=== PATIENT | male | born 1990 | race Caucasian/White ===

== ENCOUNTER 2017-03-26 21:00 | Inpatient (IN) | payer OTHER ==
[~2017-03-26] VITALS: Ht 180.3 cm; Wt 90.7 kg
--- NOTE | 2017-03-26 21:22 | PHYS DOC ---
Past Medical History Past Medical History: No Pertinent History Past Surgical History: No Surgical History Alcohol Use: None Drug Use: None Adult General Chief Complaint Chief Complaint: ABDOMINAL PAIN HPI HPI Patient is a 26 year old male who presents with. He states it started earlier today in the right lower quadrants been constant all time. He has had some nausea, but denies any vomiting. He states anytime he tries to bend over it hurts worse or if he gets bumps in the car it's worse. He denies any past medical history specifically surgeries. Review of Systems Review of Systems Constitutional: Denies fever or chills [] Eyes: Denies change in visual acuity, redness, or eye pain [] HENT: Denies nasal congestion or sore throat [] Respiratory: Denies cough or shortness of breath [] Cardiovascular: No additional information not addressed in HPI [] GI: Positive for abdominal pain, nausea, denies any vomiting, bloody stools or diarrhea [] : Denies dysuria or hematuria [] Musculoskeletal: Denies back pain or joint pain [] Integument: Denies rash or skin lesions [] Neurologic: Denies headache, focal weakness or sensory changes [] Endocrine: Denies polyuria or polydipsia [] Current Medications Current Medications Current Medications Medications (Trade) Dose Ordered Sig/Tae Start Time Stop Time Status Last Admin Dose Admin Info (Do NOT chart on this entry -- for MONITORING) 1 each PRN DAILY PRN 03/26/17 22:30 03/28/17 22:29 Iohexol (Omnipaque 300 Mg/ml) 75 ml 1X ONCE 03/26/17 22:30 03/26/17 22:31 DC 03/26/17 22:40 75 ML Morphine Sulfate 2 mg PRN Q15MIN PRN 03/26/17 21:30 03/27/17 21:29 03/26/17 23:54 2 MG Ondansetron HCl (Zofran) 4 mg 1X ONCE 03/26/17 21:30 03/26/17 21:31 DC 03/26/17 21:44 4 MG Sodium Chloride 1,000 ml @ 1,000 mls/hr Q1H 03/26/17 21:30 03/26/17 22:29 DC 03/26/17 21:44 1,000 MLS/HR Allergies Allergies Allergies Coded Allergies Type Severity Reaction Last Updated Verified No Known Drug Allergies 01/08/15 No Physical Exam Physical Exam Constitutional: Well developed, well nourished, no acute distress, non-toxic appearance. [] HENT: Normocephalic, atraumatic, bilateral external ears normal, oropharynx moist, no oral exudates, nose normal. [] Eyes: PERRLA, EOMI, conjunctiva normal, no discharge. [] Neck: Normal range of motion, no tenderness, supple, no stridor. [] Cardiovascular:Heart rate regular rhythm, no murmur [] Lungs & Thorax: Bilateral breath sounds clear to auscultation [] Abdomen: Bowel sounds normal, soft, tender to palpation in the right lower quadrant, so as sign positive, heel tap positive, no masses, no pulsatile masses. [] Skin: Warm, dry, no erythema, no rash. [] Back: No tenderness, no CVA tenderness. [] Extremities: No tenderness, no cyanosis, no clubbing, ROM intact, no edema. [] Neurologic: Alert and oriented X 3, normal motor function, normal sensory function, no focal deficits noted. [] Psychologic: Affect normal, judgement normal, mood normal. [] Current Patient Data Vital Signs Vital Signs Date Time Temp Pulse Resp B/P (MAP) Pulse Ox O2 Delivery O2 Flow Rate FiO2 03/26/17 22:30 90 22 164/86 (112) 98 Room Air 03/26/17 21:30 98.1 98.1 Lab Values Laboratory Tests Test 03/26/17 21:24 03/26/17 21:57 White Blood Count 10.4 x10^3/uL (4.0-11.0) Red Blood Count 4.82 x10^6/uL (4.30-5.70) Hemoglobin 14.4 g/dL (13.0-17.5) Hematocrit 41.7 % (39.0-53.0) Mean Corpuscular Volume 87 fL (79-100) Mean Corpuscular Hemoglobin 30 pg (25-35) Mean Corpuscular Hemoglobin Concent 34 g/dL (31-37) Red Cell Distribution Width 13.2 % (11.5-14.5) Platelet Count 280 x10^3/uL (140-400) Neutrophils (%) (Auto) 70 % (31-73) Lymphocytes (%) (Auto) 20 % (24-48) L Monocytes (%) (Auto) 8 % (0-9) Eosinophils (%) (Auto) 2 % (0-3) Basophils (%) (Auto) 1 % (0-3) Neutrophils # (Auto) 7.2 x10^3uL (1.8-7.7) Lymphocytes # (Auto) 2.1 x10^3/uL (1.0-4.8) Monocytes # (Auto) 0.8 x10^3/uL (0.0-1.1) Eosinophils # (Auto) 0.2 x10^3/uL (0.0-0.7) Basophils # (Auto) 0.1 x10^3/uL (0.0-0.2) Prothrombin Time 12.7 SEC (11.7-14.0) Prothrombin Time INR 1.0 (0.8-1.1) PTT 29 SEC (24-38) Sodium Level 141 mmol/L (136-145) Potassium Level 3.5 mmol/L (3.5-5.1) Chloride Level 105 mmol/L (98-107) Carbon Dioxide Level 27 mmol/L (21-32) Anion Gap 9 (6-14) Blood Urea Nitrogen 12 mg/dL (8-26) Creatinine 1.0 mg/dL (0.7-1.3) Estimated GFR (Cockcroft-Gault) 91.0 Glucose Level 111 mg/dL (70-99) H Calcium Level 8.4 mg/dL (8.5-10.1) L Total Bilirubin 0.3 mg/dL (0.2-1.0) Direct Bilirubin < 0.1 mg/dL (0.0-0.2) Aspartate Amino Transferase (AST) 25 U/L (15-37) Alanine Aminotransferase (ALT) 37 U/L (16-63) Alkaline Phosphatase 70 U/L (46-116) Creatine Kinase 295 U/L (39-308) Creatine Kinase MB (Mass) 1.6 ng/mL (0.0-3.6) Creatine Kinase MB Relative Index 0.5 % (0-4) Total Protein 7.6 g/dL (6.4-8.2) Albumin 3.9 g/dL (3.4-5.0) Lipase 148 U/L (73-393) Urine Collection Type Unknown Urine Color Yellow Urine Clarity Clear Urine pH 7.5 Urine Specific [place] 1.010 Urine Protein Negative mg/dL (NEG-TRACE) Urine Glucose (UA) Negative mg/dL (NEG) Urine Ketones (Stick) Negative mg/dL (NEG) Urine Blood Negative (NEG) Urine Nitrite Negative (NEG) Urine Bilirubin Negative (NEG) Urine Urobilinogen Dipstick 0.2 mg/dL (0.2 mg/dL) Urine Leukocyte Esterase Negative (NEG) Urine RBC 0 /HPF (0-2) Urine WBC 0 /HPF (0-4) Urine Squamous Epithelial Cells Few /LPF Urine Bacteria 0 /HPF (0-FEW) Urine Opiates Screen Neg (NEG) Urine Methadone Screen Neg (NEG) Urine Barbiturates Neg (NEG) Urine Phencyclidine Screen Neg (NEG) Urine Amphetamine/Methamphetamine Pos (NEG) Urine Benzodiazepines Screen Neg (NEG) Urine Cocaine Screen Pos (NEG) Urine Cannabinoids Screen Neg (NEG) Urine Ethyl Alcohol Neg (NEG) Laboratory Tests 03/26/17 21:24 Laboratory Tests 03/26/17 21:24 EKG EKG [] Radiology/Procedures Radiology/Procedures [facility] [address] [place] [address] IMAGING REPORT Signed PATIENT: SANDY BRIDGES ACCOUNT: [id number] : 1990 LOCATION: ER AGE: 26 SEX: M EXAM STATUS: REG ER ORD. PHYSICIAN: MICHELLE NOONAN MD REASON: abd pain PROCEDURE: CT ABD PELV W/ IV CONTRST ONLY CT abdomen and pelvis with contrast History: Worsening right lower quadrant pain today Technique: After the administration of intravenous contrast, CT imaging was performed of the abdomen and pelvis. No oral contrast was given as per request. Multiplanar images are reviewed. Exposure: One or more of the following individualized dose reduction techniques were utilized for this examination: 1. Automated exposure control 2. Adjustment of the mA and/or kV according to patient size 3. Use of iterative reconstruction technique. Contrast: 75 cc Omnipaque 300 Comparison: None Findings:Accurate evaluation of bowel is limited without oral contrast. While the more proximal appendix appears within normal limits, distal aspect of the appendix is slightly dilated up to 0.9 cm with relative wall thickening, questionable adjacent mild hazy change change of the fat. This is best seen on axial images 62 through 68 corresponding with coronal images 20-21. Large and small bowel are not significantly dilated. There is no significant free air or free fluid. There is no significant abnormality of the visualized lung bases. There is no significant abnormality of the liver, spleen, pancreas, adrenal glands. Both kidneys enhance without hydronephrosis. Gallbladder is present without obvious intraluminal abnormality by CT although contracted appearance The bladder has a normal configuration. There are several retroperitoneal lymph nodes, some of which are borderline enlarged 1 cm short axis dimension such as left para-aortic node axial image 41. There is bilateral L5 spondylolysis, no significant spondylolisthesis L5-S1. Impression: 1. Distal appendix is more dilated with relative wall thickening, concerning for early distal appendicitis. 2. There are some nonspecific borderline enlarged retroperitoneal nodes. 3. There is bilateral L5 spondylolysis. Electronically signed by: Uche Siegel MD (03/26/2017 11:04 PM) [facility] DICTATED and SIGNED BY: UCHE SIEGEL MD DATE: 03/26/17 2256 CC: MICHELLE NOONAN MD; NO PCP ~ Impressions: Early appendicitis Meth, cocaine abuse Course & Med Decision Making Course & Med Decision Making Pertinent Labs and Imaging studies reviewed. (See chart for details) Labs show positive for cocaine and methamphetamines. He admitted to our nurse that he used it a couple of days ago. Otherwise labs are nonacute vitals are stable. CT scan confirms early appendicitis. Spoke with Dr. Hillman who recommends Zosyn started at this time. Patient be admitted to hospitalist in stable condition this time. Interim orders have been written he's been made nothing by mouth. Dragon Disclaimer Dragon Disclaimer This electronic medical record was generated, in whole or in part, using a voice recognition dictation system. Departure Departure Impression: Primary Impression: Abdominal pain Disposition: ADMITTED INPATIENT Admitting Physician: Other Condition: STABLE Referrals: NO PCP (PCP) Problem Qualifiers Primary Impression: Abdominal pain Abdominal location: right lower quadrant Qualified Codes: R10.31 - Right lower quadrant pain MICHELLE NOONAN MD Mar 26, 2017 21:22
[2017-03-26] MEDS ORDERED: ONDANSETRON PF 4 MG/2 ML VIAL. IV ONE (21:30)
[2017-03-26] MEDS ORDERED: IV NORMAL SALINE 1000ML BAG 1,000 ML IV SCH (21:30)
[2017-03-26 21:32] LABS: BASO # 0.1 x10^3/uL (0.0-0.2); BASO % 1 % (0-3); EOS % 2 % (0-3); HEMATOCRIT 41.7 % (39.0-53.0); HEMOGLOBIN 14.4 g/dL (13.0-17.5); LYMPH # 2.1 x10^3/uL (1.0-4.8); LYMPH % 20 % (24-48); MEAN CORPUSCULAR HEMOGLOBIN 30 pg (25-35); MEAN CORPUSCULAR HGB CONC 34 g/dL (31-37); MEAN CORPUSCULAR VOLUME 87 fL (79-100); MONO % 8 % (0-9); NEUT % 70 % (31-73); PLATELET COUNT 280 x10^3/uL (140-400); RED BLOOD COUNT 4.82 x10^6/uL (4.30-5.70); RED CELL DISTRIBUTION WIDTH 13.2 % (11.5-14.5); WHITE BLOOD COUNT 10.4 x10^3/uL (4.0-11.0)
[2017-03-26 21:41] LABS: PROTHROMBIN TIME PATIENT 12.7 SEC (11.7-14.0)
[2017-03-26 21:44] LABS: ANION GAP 9 (6-14); BLOOD UREA NITROGEN 12 mg/dL (8-26); CALCIUM 8.4 mg/dL (8.5-10.1); CARBON DIOXIDE 27 mmol/L (21-32); CHLORIDE 105 mmol/L (98-107); GLUCOSE 111 mg/dL (70-99); POTASSIUM 3.5 mmol/L (3.5-5.1); SODIUM 141 mmol/L (136-145)
[2017-03-26] MEDS: MORPHINE SULFATE 2 MG/ML DISP.SYRIN. IV/SQ PRN ×2 (21:44→23:54)
[2017-03-26 21:50] LABS: ALBUMIN 3.9 g/dL (3.4-5.0); ALK PHOS 70 U/L (46-116); ALT (SGPT) 37 U/L (16-63); AST (SGOT) 25 U/L (15-37); DIRECT BILIRUBIN < 0.1 mg/dL (0.0-0.2); TOTAL BILIRUBIN 0.3 mg/dL (0.2-1.0); TOTAL PROTEIN 7.6 g/dL (6.4-8.2)
[2017-03-26 21:58] LABS: CKMB MASS 1.6 ng/mL (0.0-3.6)
[2017-03-26 22:03] LABS: BILIRUBIN,URINE NEGATIVE (NEG); GLUCOSE,URINE NEGATIVE (NEG); NITRITE,URINE NEGATIVE (NEG); PH,URINE 7.5; PROTEIN,URINE NEGATIVE (NEG-TRACE); UROBILINOGEN,URINE 0.2 mg/dL (0.2 mg/dL)
[2017-03-26 22:09] LABS: BACTERIA,URINE 0 /HPF (0-FEW); RBC,URINE 0 /HPF (0-2); SQUAMOUS EPITHELIAL CELL,UR FEW /LPF; WBC,URINE 0 /HPF (0-4)
[2017-03-26 22:12] LABS: BARBITURATES NEG (NEG); BENZODIAZEPINES NEG (NEG); CANNABINOIDS NEG (NEG); COCAINE POS (NEG); METHADONE NEG (NEG); OPIATES NEG (NEG); PHENCYCLIDINE NEG (NEG)
[2017-03-26] MEDS ORDERED: IOHEXOL 300 MG/ML 75 ML VIAL IV ONE (22:30)
[2017-03-26] MEDS ORDERED: CONTRAST GIVEN MC PRN (22:30)
--- NOTE | 2017-03-26 23:08 | RAD ---
CT abdomen and pelvis with contrast History: Worsening right lower quadrant pain today Technique: After the administration of intravenous contrast, CT imaging was performed of the abdomen and pelvis. No oral contrast was given as per request. Multiplanar images are reviewed. Exposure: One or more of the following individualized dose reduction techniques were utilized for this examination: 1. Automated exposure control 2. Adjustment of the mA and/or kV according to patient size 3. Use of iterative reconstruction technique. Contrast: 75 cc Omnipaque 300 Comparison: None Findings:Accurate evaluation of bowel is limited without oral contrast. While the more proximal appendix appears within normal limits, distal aspect of the appendix is slightly dilated up to 0.9 cm with relative wall thickening, questionable adjacent mild hazy change change of the fat. This is best seen on axial images 62 through 68 corresponding with coronal images 20-21. Large and small bowel are not significantly dilated. There is no significant free air or free fluid. There is no significant abnormality of the visualized lung bases. There is no significant abnormality of the liver, spleen, pancreas, adrenal glands. Both kidneys enhance without hydronephrosis. Gallbladder is present without obvious intraluminal abnormality by CT although contracted appearance The bladder has a normal configuration. There are several retroperitoneal lymph nodes, some of which are borderline enlarged 1 cm short axis dimension such as left para-aortic node axial image 41. There is bilateral L5 spondylolysis, no significant spondylolisthesis L5-S1. Impression: 1. Distal appendix is more dilated with relative wall thickening, concerning for early distal appendicitis. 2. There are some nonspecific borderline enlarged retroperitoneal nodes. 3. There is bilateral L5 spondylolysis. Electronically signed by: Tato Lynn MD (03/26/2017 11:04 PM) [facility]
[2017-03-26] MEDS ORDERED: PIP/TAZO PER PHARMACY MC PRN (23:30)
[2017-03-26] MEDS ORDERED: PIPERACILLIN/TAZOBACTAM 4.5 GM in IV NORMAL SALINE 100ML 100 ML IV ONE (23:45)
[2017-03-26] MEDS ORDERED: IV DEXTROSE 5 %-0.45 % NACL 1,000 ML IV ONE (23:45)
[2017-03-27] VITALS (14 sets, daily range): BP systolic 111–135; BP diastolic 53–84
[2017-03-27] MEDS: MORPHINE SULFATE 2 MG/ML DISP.SYRIN. IV PRN ×4 (00:55→19:51)
[2017-03-27 05:34] LABS: BASO % 0 % (0-3); EOS % 2 % (0-3); HEMATOCRIT 41.8 % (39.0-53.0); HEMOGLOBIN 14.2 g/dL (13.0-17.5); LYMPH # 2.3 x10^3/uL (1.0-4.8); LYMPH % 29 % (24-48); MEAN CORPUSCULAR HEMOGLOBIN 29 pg (25-35); MEAN CORPUSCULAR HGB CONC 34 g/dL (31-37); MEAN CORPUSCULAR VOLUME 86 fL (79-100); MONO % 8 % (0-9); NEUT % 61 % (31-73); PLATELET COUNT 257 x10^3/uL (140-400); RED BLOOD COUNT 4.88 x10^6/uL (4.30-5.70); WHITE BLOOD COUNT 7.9 x10^3/uL (4.0-11.0)
[2017-03-27 05:57] LABS: CALCIUM 8.5 mg/dL (8.5-10.1); POTASSIUM 3.5 mmol/L (3.5-5.1)
[2017-03-27] MEDS: PIPERACILLIN/TAZOBACTAM 4.5 GM in IV NORMAL SALINE 100ML 100 ML IV SCH ×3 (06:41→18:00)
[2017-03-27] MEDS ORDERED: BUPIVAC MPF-EPI 0.5%-1:200000 10 ML VIAL. ONE (09:54)
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
[2017-03-27] MEDS ORDERED: DEXAMETHASONE SOD PHOS 20 MG/5 ML VIAL. ONE (10:42)
[2017-03-27] MEDS ORDERED: ONDANSETRON PF 4 MG/2 ML VIAL. ONE (10:42)
[2017-03-27] MEDS ORDERED: PROPOFOL 20 ML IV ONE (10:42)
[2017-03-27] MEDS ORDERED: fentaNYL PF VIAL 100 MCG/2 ML VIAL ONE ×2 (10:42→11:47)
[2017-03-27] MEDS ORDERED: LIDOCAINE 2% PF Vial for OR 5 ML VIAL. ONE (10:42)
[2017-03-27] MEDS ORDERED: MIDAZOLAM HCL/PF 2 MG/2 ML VIAL. ONE (10:42)
[2017-03-27] MEDS ORDERED: SUCCINYLCHOLINE 200 MG/10 ML VIAL. ONE (10:43)
[2017-03-27] MEDS ORDERED: ROCURONIUM 100 MG/10 ML VIAL. ONE (10:43)
[2017-03-27] MEDS ORDERED: IV RINGERS,LACTATED 1000ML 1,000 ML IV SCH (11:03)
[2017-03-27] MEDS ORDERED: fentaNYL PF VIAL 100 MCG/2 ML VIAL IV PRN (11:15)
[2017-03-27] MEDS ORDERED: PROCHLORPERAZINE 10 MG/2 ML VIAL. IV PRN (11:15)
[2017-03-27] MEDS ORDERED: ONDANSETRON PF 4 MG/2 ML VIAL. IV PRN ×2 (11:15→13:45)
[2017-03-27] MEDS ORDERED: LIDOCAINE 1% PF 2 ML VIAL. ID PRN (11:15)
[2017-03-27] MEDS ORDERED: MORPHINE SULFATE 2 MG/ML DISP.SYRIN. IV PRN (11:15)
[2017-03-27] MEDS ORDERED: HYDROmorphone 2 MG/ML VIAL IV PRN (11:15)
[2017-03-27] MEDS ORDERED: NEOSTIGMINE METHYLSULFATE 5 MG/5 ML SYRINGE. ONE (11:58)
[2017-03-27] MEDS ORDERED: GLYCOPYRROLATE 1 MG/5 ML VIAL. ONE (11:58)
[2017-03-27] MEDS ORDERED: DESFLURANE 61 TO 120 MINUTES IH ONE (12:06)
[2017-03-27] MEDS ORDERED: DESFLURANE > 120 MINUTES IH ONE (12:06)
[2017-03-27] MEDS: fentaNYL PF VIAL 100 MCG/2 ML VIAL IV PRN ×2 (12:30→12:40)
[2017-03-27] MEDS ORDERED: 0.9 % SODIUM CHLORIDE 10 ML DISP.SYRIN. IV PRN (13:45)
--- NOTE | 2017-03-27 13:45 | PDOC4 ---
OPERATIVE NOTE Date: Date: Mar 27, 2017 Pre-Op Diagnosis: Appendicitis Post-Op Diagnosis: same Procedure Performed: laparoscopic appendectomy Surgeon: Meek Griffin Anesthesia Type: GETA plus 0.5% marcaine Blood Loss: 50 Specimans Obtained: appendix Findings: induration of tip of the appendix Complications: none Operative Note: After obtaining informed consent, patient was taken to the OR, induced under GETA, and prepped in the usual fashion. 5 mm port placed in left lower quadrant and suprapubic area. 12 port placed in supraumbilical area, all under laparoscopic guidance. Gallbladder, liver, viscera otherwise normal in appearance. No hernia seen. Appendix indurated at the tip. Ureter visualized by yan's sign. Appendix sharply dissected out. Defect created in mesoappendix. General load JONNA used to divide the appendix at the base. Vascular load taken across the mesoappendix. Appendix delivered via an endocatch bag and sent to pathology. Copious irrigation. Staple lines intact. No bleeding or other pathology. Fascia repaired with 0 vicryl and skin repaired with 4 0 moncryl. Dressing applied. Patient tolerated procedure well. Sent to PACU in stable condition. All counts were correct. No immediate complications. MEEK GRIFFIN MD Mar 27, 2017 13:45
[2017-03-27] MEDS: HYDROcodone/APAP 5/325MG 1 TAB TABLET PO PRN ×2 (13:50→19:57)
[2017-03-27] MEDS: IV RINGERS,LACTATED 1000ML 1,000 ML IV SCH (13:57)
[2017-03-27] MEDS ORDERED: ENOXAPARIN 40 MG/0.4 ML SYRINGE. SQ SCH (14:00)
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
[2017-03-27] MEDS ORDERED: ACETAMINOPHEN 325 MG TABLET. PO PRN (14:45)
[2017-03-27] MEDS: ONDANSETRON PF 4 MG/2 ML VIAL. IV PRN ×2 (17:22→19:50)
[2017-03-27] MEDS: DOCUSATE SODIUM 100 MG CAPSULE. PO SCH (19:57)
[2017-03-28] MEDS: PIPERACILLIN/TAZOBACTAM 4.5 GM in IV NORMAL SALINE 100ML 100 ML IV SCH ×3 (00:37→11:49)
[2017-03-28] MEDS: IV RINGERS,LACTATED 1000ML 1,000 ML IV SCH ×2 (00:38→09:36)
[2017-03-28] MEDS: HYDROcodone/APAP 5/325MG 1 TAB TABLET PO PRN ×3 (00:38→11:52)
[2017-03-28] MEDS: MORPHINE SULFATE 2 MG/ML DISP.SYRIN. IV PRN ×2 (01:41→06:51)
[2017-03-28 03:45] VITALS: BP 131/59
[2017-03-28 05:46] LABS: BASO % 0 % (0-3); EOS % 0 % (0-3); HEMATOCRIT 30.6 % (39.0-53.0); HEMOGLOBIN 10.5 g/dL (13.0-17.5); LYMPH % 6 % (24-48); MEAN CORPUSCULAR HEMOGLOBIN 29 pg (25-35); MEAN CORPUSCULAR HGB CONC 34 g/dL (31-37); MEAN CORPUSCULAR VOLUME 86 fL (79-100); MONO % 4 % (0-9); NEUT % 89 % (31-73); PLATELET COUNT 268 x10^3/uL (140-400); RED BLOOD COUNT 3.57 x10^6/uL (4.30-5.70); RED CELL DISTRIBUTION WIDTH 12.9 % (11.5-14.5); WHITE BLOOD COUNT 16.2 x10^3/uL (4.0-11.0)
[2017-03-28 06:15] LABS: CALCIUM 8.3 mg/dL (8.5-10.1); POTASSIUM 4.1 mmol/L (3.5-5.1)
[2017-03-28 07:00] VITALS: BP 137/75
[2017-03-28] MEDS: SIMETHICONE 80 MG TAB.CHEW PO PRN ×2 (08:46→11:52)
[2017-03-28] MEDS: DOCUSATE SODIUM 100 MG CAPSULE. PO SCH (08:46)
[2017-03-28 09:44] LABS: PLT ESTIMATE ADEQUATE (ADEQUATE)
[2017-03-28 11:00] VITALS: BP 122/52
[2017-03-28] MEDS ORDERED: HYDR-2758 PO (12:14)
--- NOTE | 2017-03-28 13:25 | PDOC3 ---
Discharge Summary Visit Information Date of Admission: Mar 26, 2017 Date of Discharge: Mar 28, 2017 Admitting Diagnosis: appendicitis Final Diagnosis Problems Medical Problems: (1) Abdominal pain Status: Acute Brief Hospital Course Allergies Allergies Coded Allergies Type Severity Reaction Last Updated Verified No Known Drug Allergies 01/08/15 No Vital Signs Vital Signs Date Time Temp Pulse Resp B/P (MAP) Pulse Ox O2 Delivery O2 Flow Rate FiO2 03/28/17 11:00 98.4 98 18 122/52 (75) 95 Room Air 98.4 03/27/17 12:45 2 Lab Results Laboratory Tests Test 03/26/17 21:24 03/26/17 21:57 03/27/17 05:10 03/28/17 03:50 White Blood Count 10.4 x10^3/uL (4.0-11.0) 7.9 x10^3/uL (4.0-11.0) Red Blood Count 4.82 x10^6/uL (4.30-5.70) 4.88 x10^6/uL (4.30-5.70) Hemoglobin 14.4 g/dL (13.0-17.5) 14.2 g/dL (13.0-17.5) Hematocrit 41.7 % (39.0-53.0) 41.8 % (39.0-53.0) Mean Corpuscular Volume 87 fL (79-100) 86 fL (79-100) Mean Corpuscular Hemoglobin 30 pg (25-35) 29 pg (25-35) Mean Corpuscular Hemoglobin Concent 34 g/dL (31-37) 34 g/dL (31-37) Red Cell Distribution Width 13.2 % (11.5-14.5) 13.0 % (11.5-14.5) Platelet Count 280 x10^3/uL (140-400) 257 x10^3/uL (140-400) Neutrophils (%) (Auto) 70 % (31-73) 61 % (31-73) Lymphocytes (%) (Auto) 20 % (24-48) 29 % (24-48) Monocytes (%) (Auto) 8 % (0-9) 8 % (0-9) Eosinophils (%) (Auto) 2 % (0-3) 2 % (0-3) Basophils (%) (Auto) 1 % (0-3) 0 % (0-3) Neutrophils # (Auto) 7.2 x10^3uL (1.8-7.7) 4.9 x10^3uL (1.8-7.7) Lymphocytes # (Auto) 2.1 x10^3/uL (1.0-4.8) 2.3 x10^3/uL (1.0-4.8) Monocytes # (Auto) 0.8 x10^3/uL (0.0-1.1) 0.7 x10^3/uL (0.0-1.1) Eosinophils # (Auto) 0.2 x10^3/uL (0.0-0.7) 0.1 x10^3/uL (0.0-0.7) Basophils # (Auto) 0.1 x10^3/uL (0.0-0.2) 0.0 x10^3/uL (0.0-0.2) Prothrombin Time 12.7 SEC (11.7-14.0) Prothromb Time International Ratio 1.0 (0.8-1.1) Activated Partial Thromboplast Time 29 SEC (24-38) Sodium Level 141 mmol/L (136-145) 142 mmol/L (136-145) 139 mmol/L (136-145) Potassium Level 3.5 mmol/L (3.5-5.1) 3.5 mmol/L (3.5-5.1) 4.1 mmol/L (3.5-5.1) Chloride Level 105 mmol/L (98-107) 108 mmol/L (98-107) 105 mmol/L (98-107) Carbon Dioxide Level 27 mmol/L (21-32) 28 mmol/L (21-32) 27 mmol/L (21-32) Anion Gap 9 (6-14) 6 (6-14) 7 (6-14) Blood Urea Nitrogen 12 mg/dL (8-26) 8 mg/dL (8-26) 8 mg/dL (8-26) Creatinine 1.0 mg/dL (0.7-1.3) 1.0 mg/dL (0.7-1.3) 1.0 mg/dL (0.7-1.3) Estimated GFR (Cockcroft-Gault) 91.0 91.0 91.0 Glucose Level 111 mg/dL (70-99) 118 mg/dL (70-99) 183 mg/dL (70-99) Calcium Level 8.4 mg/dL (8.5-10.1) 8.5 mg/dL (8.5-10.1) 8.3 mg/dL (8.5-10.1) Total Bilirubin 0.3 mg/dL (0.2-1.0) Direct Bilirubin < 0.1 mg/dL (0.0-0.2) Aspartate Amino Transf (AST/SGOT) 25 U/L (15-37) Alanine Aminotransferase (ALT/SGPT) 37 U/L (16-63) Alkaline Phosphatase 70 U/L (46-116) Creatine Kinase 295 U/L (39-308) Creatine Kinase MB (Mass) 1.6 ng/mL (0.0-3.6) Creatine Kinase MB Relative Index 0.5 % (0-4) Total Protein 7.6 g/dL (6.4-8.2) Albumin 3.9 g/dL (3.4-5.0) Lipase 148 U/L (73-393) Urine Collection Type Unknown Urine Color Yellow Urine Clarity Clear Urine pH 7.5 Urine Specific [place] 1.010 Urine Protein Negative mg/dL (NEG-TRACE) Urine Glucose (UA) Negative mg/dL (NEG) Urine Ketones (Stick) Negative mg/dL (NEG) Urine Blood Negative (NEG) Urine Nitrite Negative (NEG) Urine Bilirubin Negative (NEG) Urine Urobilinogen Dipstick 0.2 mg/dL (0.2 mg/dL) Urine Leukocyte Esterase Negative (NEG) Urine RBC 0 /HPF (0-2) Urine WBC 0 /HPF (0-4) Urine Squamous Epithelial Cells Few /LPF Urine Bacteria 0 /HPF (0-FEW) Urine Opiates Screen Neg (NEG) Urine Methadone Screen Neg (NEG) Urine Barbiturates Neg (NEG) Urine Phencyclidine Screen Neg (NEG) Urine Amphetamine/Methamphetamine Pos (NEG) Urine Benzodiazepines Screen Neg (NEG) Urine Cocaine Screen Pos (NEG) Urine Cannabinoids Screen Neg (NEG) Urine Ethyl Alcohol Neg (NEG) Test 03/28/17 05:00 White Blood Count 16.2 x10^3/uL (4.0-11.0) Red Blood Count 3.57 x10^6/uL (4.30-5.70) Hemoglobin 10.5 g/dL (13.0-17.5) Hematocrit 30.6 % (39.0-53.0) Mean Corpuscular Volume 86 fL (79-100) Mean Corpuscular Hemoglobin 29 pg (25-35) Mean Corpuscular Hemoglobin Concent 34 g/dL (31-37) Red Cell Distribution Width 12.9 % (11.5-14.5) Platelet Count 268 x10^3/uL (140-400) Neutrophils (%) (Auto) 89 % (31-73) Lymphocytes (%) (Auto) 6 % (24-48) Monocytes (%) (Auto) 4 % (0-9) Eosinophils (%) (Auto) 0 % (0-3) Basophils (%) (Auto) 0 % (0-3) Neutrophils # (Auto) 14.5 x10^3uL (1.8-7.7) Lymphocytes # (Auto) 1.0 x10^3/uL (1.0-4.8) Monocytes # (Auto) 0.7 x10^3/uL (0.0-1.1) Eosinophils # (Auto) 0.0 x10^3/uL (0.0-0.7) Basophils # (Auto) 0.0 x10^3/uL (0.0-0.2) Segmented Neutrophils % 90 % (35-66) Band Neutrophils % 3 % (0-9) Lymphocytes % 5 % (24-48) Monocytes % 2 % (0-10) Platelet Estimate Adequate (ADEQUATE) Laboratory Tests Test 03/28/17 03:50 03/28/17 05:00 Sodium Level 139 mmol/L (136-145) Potassium Level 4.1 mmol/L (3.5-5.1) Chloride Level 105 mmol/L (98-107) Carbon Dioxide Level 27 mmol/L (21-32) Anion Gap 7 (6-14) Blood Urea Nitrogen 8 mg/dL (8-26) Creatinine 1.0 mg/dL (0.7-1.3) Estimated GFR (Cockcroft-Gault) 91.0 Glucose Level 183 mg/dL (70-99) Calcium Level 8.3 mg/dL (8.5-10.1) White Blood Count 16.2 x10^3/uL (4.0-11.0) Red Blood Count 3.57 x10^6/uL (4.30-5.70) Hemoglobin 10.5 g/dL (13.0-17.5) Hematocrit 30.6 % (39.0-53.0) Mean Corpuscular Volume 86 fL (79-100) Mean Corpuscular Hemoglobin 29 pg (25-35) Mean Corpuscular Hemoglobin Concent 34 g/dL (31-37) Red Cell Distribution Width 12.9 % (11.5-14.5) Platelet Count 268 x10^3/uL (140-400) Neutrophils (%) (Auto) 89 % (31-73) Lymphocytes (%) (Auto) 6 % (24-48) Monocytes (%) (Auto) 4 % (0-9) Eosinophils (%) (Auto) 0 % (0-3) Basophils (%) (Auto) 0 % (0-3) Neutrophils # (Auto) 14.5 x10^3uL (1.8-7.7) Lymphocytes # (Auto) 1.0 x10^3/uL (1.0-4.8) Monocytes # (Auto) 0.7 x10^3/uL (0.0-1.1) Eosinophils # (Auto) 0.0 x10^3/uL (0.0-0.7) Basophils # (Auto) 0.0 x10^3/uL (0.0-0.2) Segmented Neutrophils % 90 % (35-66) Band Neutrophils % 3 % (0-9) Lymphocytes % 5 % (24-48) Monocytes % 2 % (0-10) Platelet Estimate Adequate (ADEQUATE) Brief Hospital Course Mr. Medeiros is a 26 old male who presented with abd pain. Imaging c/w appendicitis. He underwent uncomplicated laparoscopic appendectomy on 03/27. POD # 1 he reports doing well. Tolerating PO and ambulating well. Pain controlled. He is d/c'ed home. F/u in two weeks. ISABELLA. Scripts include lortab , colace. His WBC is 16 (favor surgical stress) with no evidence of infection or perforation. As such, abx are not prescribed. Discharge Information Scheduled PRN Hydrocodone Bit/Acetaminophen (Hydrocodone-Apap 5-325 ), 1 TAB PO PRN Q4HRS PRN for MILD PAIN DEON GRIFFIN MD Mar 28, 2017 13:24
--- NOTE | 2017-03-28 15:13 | PDOC3 ---
Discharge Summary [facility] Date of Admission: Mar 26, 2017 Discharge Date: Mar 28, 2017 Admitting Diagnosis acute appendicitis s/p lap appendectomy 03/27 h/o drug abuse with cocaine Problems: Final Diagnosis CONSULTS sx Procedures lap mira Brief Hospital Course Patient is a 26 year old male who presents with RLQ pain x1d. He states it started earlier yesterday in the right lower quadrants been constant all time, severe, no radiation, sharp, tenderness. + nausea, no vomiting, no fever, chills, had BM. ct showed acute mira. underwent lap appendectomy. today pt pain 6/10, eats ok, had flatus and bm stable to dc home dc time 35min GEN.: No apparent distress. Alert and oriented. HEENT: Head is normocephalic, atraumatic NECK: Supple. LUNGS: Clear to auscultation. HEART: RRR, S1, S2 present. Peripheral pulses intact ABDOMEN: Soft, Positive bowel sounds. RLQ mild tenderness, clean sx wound EXTREMITIES: Without any cyanosis. NEUROLOGIC: Normal speech, normal tone PSYCHIATRIC: Normal affect, normal mood. SKIN: No ulcerations Patient History: Problems: Disposition home CONDITION AT DISCHARGE: Improved Diet regular Scheduled PRN Hydrocodone Bit/Acetaminophen (Hydrocodone-Apap 5-325 ), 1 TAB PO PRN Q4HRS PRN for MILD PAIN Follow Up sx in 2 weeks ELVIRA TANNER MD Mar 28, 2017 15:13
--- NOTE | 2017-03-30 13:23 | PATHOLOGY ---
PATHOLOGY REPORT * * * * * * * * FINAL DIAGNOSIS: Appendix, laparoscopic appendectomy: - Acute appendicitis. COMMENT: There is no evidence of rupture. (JPM:[email or web address]; 03/30/2017) REPORT ELECTRONICALLY SIGNED BY: Boyd Potter M.D. DATE/TIME: 03/30/2017 13:22 * * * * * * * * GROSS PATHOLOGY: Received in formalin labeled "Ruslan Medeiros appendix," is an appendix measuring 6.6 cm in length and 0.9 cm in diameter with an abundant amount of attached mesoappendix. The serosal surface is el and smooth with adhesions and purulent exudate. Sectioning reveals a patent lumen. No fecaliths are identified. Nuclear Criticality Safety Engineer sections are submitted in cassette A1. (SDY; 03/29/2017) INITIAL CPT CODE(S): A; 77580 Professional services performed [place] [facility] [place] [address] Technical services performed by [facility] at [address] [place] [address], [facility] [address], [place] [address]. SPECIMEN(S) RECEIVED: A.Appendix CLINICAL HISTORY: Appendix PATIENT: RUSLAN MEDEIROS /AGE: 11 1990 (Age: 26) PATIENT #: [id number] ALT CASE #: SPECIMEN COLLECTION DATE: 03/27/2017 SPECIMEN RECEIVED DATE: 03/29/2017 [facility] - [address] [place] [address] - PHONE: [phone] * * * END OF REPORT * * *
== END 2017-03-28 14:24 | disposition home or self-care (01) | DRG 342 ==
LOC: ER 21:00 → 4 NORTH 22:30
PROVIDERS: ADMIT Internal Medicine Hematology & Oncology; ATTEND Internal Medicine Hematology & Oncology
PROC: 0DTJ4ZZ Resection of Appendix, Percutaneous Endoscopic Approach (ICD-10-PCS; principal; 2017-03-27 10:37)
DX: K35.80 Unspecified acute appendicitis (principal); D62 Acute posthemorrhagic anemia; F14.10 Cocaine abuse, uncomplicated; M43.06 Spondylolysis, lumbar region; F15.10 Other stimulant abuse, uncomplicated; Z82.49 Family history of ischemic heart disease and other diseases of the circulatory system
CPT/HCPCS: 36415; 74177; 80048; 80076; 80307; 81001; 82553; 83690; 85007; 85025; 85610; 85730; 88304; 96361; 96365; 96375; 96376; J0330; J0694; J1100; J1650; J2250; J2270; J2405; J2543; J2704; J2710; J3010; J3490; J7030; J7120; Q9967; 99285-25; G0479; J2001